=== PATIENT | male | born 1990 | race Caucasian/White ===

== ENCOUNTER 2022-11-09 19:58 | Emergency (ER) | payer MEDICAID ==
[~2022-11-09] VITALS: Ht 175.3 cm; Wt 65.4 kg
[~2022-11-09 19:58] MED LIST: CLON-529 PO; FOLI1TAB27 PO; LACT1CAP26 PO; LEVO750T68 PO; PANT40TA54 PO; THI100T PO
[2022-11-09] MEDS ORDERED: DOXYCYCLINE 100MG CAPSULE PO STA (21:22)
[2022-11-09] MEDS ORDERED: AMOX500C2 PO (21:24)
[2022-11-09] MEDS ORDERED: DOXY100C77 PO (21:24)
[2022-11-09] MEDS ORDERED: amoxicillin 250mg capsule PO ONE (21:25)
[2022-11-09 22:19] VITALS: BP 115/74
== END 2022-11-09 22:23 | disposition home or self-care (01) ==
LOC: ER 19:59
DX: T40.411A Poisoning by fentanyl or fentanyl analogs, accidental (unintentional), initial encounter (principal); J18.9 Pneumonia, unspecified organism; E11.9 Type 2 diabetes mellitus without complications; Z59.00 Homelessness unspecified; Z56.0 Unemployment, unspecified; Y92.89 Other specified places as the place of occurrence of the external cause
CPT/HCPCS: 71045; 93005; 99283

== ENCOUNTER 2024-03-07 23:17 | Emergency (ER) | payer MEDICAID ==
[~2024-03-07] VITALS: Ht 175.3 cm; Wt 79.1 kg
[2024-03-08] MEDS ORDERED: CEPH-585 PO (01:13)
[2024-03-08] MEDS ORDERED: SULF1TAB49 PO (01:13)
[2024-03-08] MEDS: sulfamethoxazole/trimethoprim DS (800/160mg) tablet PO ONE (01:25)
[2024-03-08] MEDS: cephalexin 250mg capsule PO ONE (01:25)
[2024-03-08 01:32] VITALS: BP 129/90; PULSE 75; RESP 14; TEMP 98.6; O2SAT 98
== END 2024-03-08 01:37 | disposition home or self-care (01) ==
LOC: ER 23:17
DX: L02.212 Cutaneous abscess of back [any part, except buttock and flank] (principal); Z87.81 Personal history of (healed) traumatic fracture; Z56.0 Unemployment, unspecified; Z59.00 Homelessness unspecified; Z79.899 Other long term (current) drug therapy
CPT/HCPCS: 99283

== ENCOUNTER 2024-06-06 16:13 | Emergency (ER) | payer MEDICAID ==
[~2024-06-06 16:13] MED LIST changes: +CEPH-585 PO
[2024-06-06 17:08] VITALS: BP 130/91; PULSE 70; RESP 16; TEMP 98.9; O2SAT 100
== END 2024-06-06 18:16 | disposition home or self-care (01) ==
LOC: ER 16:13
DX: T65.891A Toxic effect of other specified substances, accidental (unintentional), initial encounter (principal); E11.9 Type 2 diabetes mellitus without complications; Z79.2 Long term (current) use of antibiotics; Z79.899 Other long term (current) drug therapy; Y92.89 Other specified places as the place of occurrence of the external cause
CPT/HCPCS: 99283